=== PATIENT | female | born 1955 | race Caucasian/White ===

== ENCOUNTER 2025-06-22 11:06 | Emergency (ER) | payer MEDICARE, MEDICAID | END 2025-06-22 13:40 | disposition home or self-care (01) | LOC: CSHERS 11:06 | DX: R11.2 Nausea with vomiting, unspecified (principal); I11.0 Hypertensive heart disease with heart failure; I50.9 Heart failure, unspecified; E11.9 Type 2 diabetes mellitus without complications; J44.9 Chronic obstructive pulmonary disease, unspecified; F17.210 Nicotine dependence, cigarettes, uncomplicated | CPT/HCPCS: 87428; 99283 ==